=== PATIENT | male | born 1955 | race American Indian/Alaskan Native ===

== ENCOUNTER 2017-06-09 16:54 | Inpatient (IN) | payer MEDICARE ==
[2017-06-09 17:35] LABS: BASO % 0.4 % (0.0-2.0); EOS # 0.3 K/uL (0.0-0.7); EOS % 2.9 % (0.0-4.0); LYMPH # 2.5 K/uL (1.0-4.3); LYMPH % 22.1 % (20.0-40.0); MEAN CELL VOLUME 80.6 fL (80.0-94.0); MEAN CORPUSCULAR HEMOGLOBIN 28.4 pg (27.0-31.0); MEAN CORPUSCULAR HGB CONC 35.2 g/dL (33.0-37.0); MEAN PLATELET VOLUME 8.2 fL (7.2-11.7); MONO # 0.8 K/uL (0.0-0.8); MONO % 6.9 % (0.0-10.0); NRBC % 0.1 % (0.0-2.0); RED CELL DISTRIBUTION WIDTH 14.8 % (11.5-14.5); WHITE BLOOD COUNT 11.5 K/uL (4.8-10.8)
[2017-06-09 17:54] LABS: ALCOHOL SERUM 10 mg/dl (0-10); ALKALINE PHOSPHATASE 59 U/L (38-126); ALT/SGPT 44 U/L (21-72); AST/SGOT 35 U/L (17-59); BILIRUBIN,TOTAL 0.6 mg/dL (0.2-1.3); BLOOD UREA NITROGEN 23 mg/dL (9-20); CALCIUM 8.7 mg/dl (8.6-10.4); CARBON DIOXIDE 32 mmol/L (22-30); CHLORIDE 99 mmol/L (98-107); GFR AFRICAN-AMERICAN > 60; GLUCOSE,RANDOM 87 mg/dL (75-110); POTASSIUM 4.4 mmol/L (3.6-5.2); SODIUM 136 mmol/L (132-148); TOTAL PROTEIN 9.2 g/dL (6.3-8.3)
[2017-06-09 18:01] LABS: ALB/GLOB RATIO 0.9 (1.0-2.1)
[2017-06-09 18:03] LABS: RBC URINE 1 /hpf (0-3); URINE BILIRUBIN NEGATIVE (NEGATIVE); URINE BLOOD NEGATIVE (NEGATIVE); URINE COLOR Yellow (YELLOW); URINE GLUCOSE (UA) NORMAL (Normal); URINE KETONE NEGATIVE (NEGATIVE); URINE LEUKOCYTE ESTERASE TRACE Leu/uL (Negative); URINE PROTEIN NEGATIVE (NEGATIVE); URINE UROBILINOGEN NORMAL mg/dL (0.2-1.0); WBC URINE 4 /hpf (0-5)
--- NOTE | 2017-06-09 18:31 | C.PDOC ---
History Of Present Illness <CookAysha Go - Last Filed: 06/09/17 19:11> <Leatha Herculesmonica - Last Filed: 06/09/17 19:25> Rj Mario is a 61 year old male presents to the emergency department requesting detox from heroin, last time used was today. He uses intranasally for several years. Patient denies other drug use. He denies any fever, chills, suicidal or homicidal ideation. No further medical complaints. PMd: Dr. Malik in [facility] (Aysha Cook) History Per: Patient History/Exam Limitations: no limitations Onset/Duration Of Symptoms: Days (x1) Suicide/Self Injury Attempted (Context): None Severity: None Pain Scale Rating Of: 0 Associated Symptoms: denies: Suicidal Thoughts, Suicidal Plan <CookAysha Go - Last Filed: 06/09/17 19:11> <JenniferzaidaLeathamonica - Last Filed: 06/09/17 19:25> Time Seen by Provider: 06/09/17 17:19 Chief Complaint (Nursing): Substance Abuse Past Medical History Reviewed: Historical Data, Nursing Documentation, Vital Signs - Medical History PMH: Arthritis, HTN, Hypercholesterolemia Surgical History: Hernia Repair (ventral) Other Surgeries: bilateral foot surgery Family History: States: Unknown Family Hx - Social History Hx Tobacco Use: Yes (Light smoker <10 cigarettes daily) Hx Alcohol Use: Yes Hx Substance Use: Yes (Heroin use) - Immunization History Hx Tetanus Toxoid Vaccination: No Hx Influenza Vaccination: Yes Hx Pneumococcal Vaccination: No <JoeyAysha Go - Last Filed: 06/09/17 19:11> Vital Signs: Last Vital Signs Temp 98.2 F 06/09/17 17:09 Pulse 63 06/09/17 17:09 Resp 18 06/09/17 17:09 BP 148/71 06/09/17 17:09 Pulse Ox 99 06/09/17 19:11 Review Of Systems Except As Marked, All Systems Reviewed And Found Negative. Constitutional: Negative for: Fever, Chills Psych: Negative for: Suicidal ideation (or homicidal ) <CookAysha Go - Last Filed: 06/09/17 19:11> Physical Exam - Physical Exam Appears: No Acute Distress Skin: Normal Color, Warm, Dry Head: Atraumatic, Normacephalic Eye(s): bilateral: Normal Inspection, PERRL, EOMI Neck: Normal, Normal ROM Cardiovascular: Rhythm Regular, No Murmur Respiratory: Normal Breath Sounds, No Accessory Muscle Use Gastrointestinal/Abdominal: Normal Exam, Bowel Sounds, Soft, No Tenderness, No Guarding, No Rebound Back: Normal Inspection, No CVA Tenderness Extremity: Normal ROM, No Deformity, No Swelling Neurological/Psych: Oriented x3, Normal Speech Gait: Steady <Aysha Cook - Last Filed: 06/09/17 19:11> ED Course And Treatment - Laboratory Results Result Diagrams: 06/09/17 17:32 12 17:32 O2 Sat by Pulse Oximetry: 99 (RA) Pulse Ox Interpretation: Normal <Aysha Cook - Last Filed: 06/09/17 19:11> - Laboratory Results Result Diagrams: 06/09/17 17:32 12 17:32 <Ismael Hercules - Last Filed: 06/09/17 19:25> Medical Decision Making <Aysha Cook - Last Filed: 06/09/17 19:11> <Ismael Hercules - Last Filed: 06/09/17 19:25> Medical Decision Making: Initial Impression: substance abuse Initial Plan: --Alcohol serum --Comp Metabolic Panel --Drug screen, Urine --CBC w/ differential --Urinalysis --AES crisis evaluation Labs ordered and reviewed. In my clinical judgment patient is medically cleared and stable for detox admission. 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 [address] Beard Case signed out to Dr Hercules and pending dispo (Aysha Cook) Disposition - Disposition Disposition Time: 19:06 - POA Present On Arrival: None <Aysha Cook - Last Filed: 06/09/17 19:11> Discussed With : Diego Beard Comment: accepted the pt on his service and took over the care at 7:25 PM Doctor Will See Patient In The: Hospital Counseled Patient/Family Regarding: Studies Performed, Diagnosis - POA Present On Arrival: None <Ismael Hercules - Last Filed: 06/09/17 19:25> - Disposition Disposition: HOSPITALIZED Condition: FAIR - Clinical Impression Clinical Impression: Opiate dependence - PA / ANNUAL GIVING OFFICER / Resident Statement MD/DO has reviewed & agrees with the documentation as recorded. - Scribe Statement The provider has reviewed the documentation as recorded by the Scribe <Aysha Cook - Last Filed: 06/09/17 19:11> <Ismael Hercules - Last Filed: 06/09/17 19:25> - Scribe Statement Documented by Agustin Lang acting as a scribe for AARON Eckert All medical record entries made by the Scribe were at my direction and personally dictated by me. I have reviewed the chart and agree that the record accurately reflects my personal performance of the history, physical exam, medical decision making, and the department course for this patient. I have also personally directed, reviewed, and agree with the discharge instructions and disposition. (Aysha Cook) Decision To Admit <Aysha Cook - Last Filed: 06/09/17 19:11> - Pt Status Changed To: Hospital Disposition Of: Inpatient - Admit Certification Admit to Inpatient:: After my assessment, the patient will require hospitalization for at least two midnights. This is because of the severity of symptoms shown, intensity of services needed, and/or the medical risk in this patient being treated as an outpatient. - InPatient: Physician Admission Certification: I certify that this patient requires 2 or more midnights of care for the following reason:: After my assessment, the patient will require hospitalization for at least two midnights. This is because of the severity of symptoms shown, intensity of services needed, and/or the medical risk in this patient being treated as an outpatient. - . Bed Request Type: Detox Admitting Physician: Diego Beard <Ismael Hercules - Last Filed: 06/09/17 19:25> - . Patient Diagnosis: Opiate dependence
--- NOTE | 2017-06-09 19:35 | PCM.BM ---
<Lauren Corrales - Last Filed: 06/09/17 19:34> Treatment Plan Problems - Problems identified on initial assessmt potiential for opiate withdrawal Date Initiated: 06/09/17 Time Initiated: 19:35 Assessment reference: NA Status: Active Treatment assets and liabiliti Patient Assests: cooperative, motivated, ADL independent, good support system Patient Liabilities: substance abuse, medical problems - Milieu Protocol Maintain good personal hygiene: daily Encourage regular showers, daily Remind patient to perform daily oral care, daily Assist patient to perform ADL's Maintain personal safety: every shift Educate patient to report safety concerns to staff, every shift Monitor environment for contraband/sharps Medication safety: Monitor for expected outcome, potential side effects: every shift, Assess barriers to learning: every shift, Assess readiness for medication education: every shift <Jamie Schwartz - Last Filed: 06/10/17 21:36> - Diagnosis (1) Opioid use disorder, severe, dependence Status: Acute Interventions: 06/10/17 21:35 Assess 7x/week regarding severity of withdrawal Educate regarding risks, benefits, side effects and alternatives of medications Use Motivational Interviewing for abstinence Use CBT for relapse prevention Medication management for withdrawal symptoms Encourage medication assisted treatment
[2017-06-09] MEDS: LUMIGAN 0.01% OU SCH (22:12)
[2017-06-10] MEDS ORDERED: Aluminum Hydroxide/Magnesium Hydroxide Susp (30 mL) PO PRN (00:22)
[2017-06-10] MEDS ORDERED: Home Med 1 UNIT (Meloxicam [Mobic] 15 MG) PO SCH (10:00)
[2017-06-10] MEDS ORDERED: Magnesium Hydroxide Susp 30 ml UD PO PRN (16:28)
--- NOTE | 2017-06-10 21:41 | PCM.PSYCH ---
Initial Psychiatric Evaluation - Initial Psychiatric Evaluation Type of Admission: Voluntary Legal Status: Capacity Chief Complaint (in patient's own words): I want to stop using heroin. History of Present Illness and Precipitating Events: Patient is a 61 years old, , retired, -[place] male with history of opioid use was admitted for the treatment of withdrawing from heroine. Patient started using heroin at the age of 12 years, increase gradually up to 6- 8 bags daily, snorting. Last used yesterday. Longest period of abstinence 3 years from [id number]. History of one detox and one rehab in the past. Patient also has history of cannabis and cocaine use in the past. Last use of cannabis about 30 years ago and cocaine in 1999. Also smokes cigarettes half pack daily and is requesting for nicotine patch. Patient has history of incarceration due to substance delivery. He was arrested 5 times and he was incarcerated for total of 12 years. Patient was born in [place], has GED, retired from [employer]. He is and has 4 grownup children. Lives with and 3 children. His height is 6 feet 1 inch and weight is 210 pounds. Current Medications: Active Medications Generic Name Dose Route Start Last Admin Trade Name Freq PRN Reason Stop Dose Admin Al Hydrox/Mg Hydrox/Simethicone 30 ml 06/10/17 00:22 Maalox 30 Ml PO TID PRN Indigestion / Heartburn Aspirin 81 mg 06/10/17 10:00 06/10/17 09:47 Aspirin Chewable PO 81 mg DAILY TURNER Administration Carvedilol 12.5 mg 06/09/17 21:45 06/10/17 18:04 Coreg PO 12.5 mg BID TURNER Administration Clonidine HCl 0.1 mg 06/10/17 00:22 Catapres PO Q8 PRN COWS Score More or Equal to 5 Gabapentin 100 mg 06/10/17 10:00 06/10/17 18:13 Neurontin PO Not Given TID TURNER Home Med 1 drop 06/09/17 22:00 06/09/17 22:12 Patient's Own Drops OU 1 drop HS TURNER Administration Hydroxyzine HCl 25 mg 06/10/17 00:24 Atarax PO Q6 PRN Agitation Loperamide HCl 2 mg 06/10/17 00:22 Imodium PO Q8 PRN Diarrhea Losartan Potassium 100 mg 06/10/17 10:00 06/10/17 09:47 Cozaar PO 100 mg DAILY TURNER Administration Magnesium Hydroxide 30 ml 06/10/17 16:28 06/10/17 18:05 Milk Of Magnesia PO 30 ml BID PRN Administration Nasal congestion Methadone HCl 20 mg 06/10/17 10:00 06/10/17 09:48 Methadone PO 06/14/17 09:59 20 mg DAILY TURNER Administration Taper Nicotine 1 patch 06/10/17 11:15 06/10/17 11:32 Nicoderm Cq TD 1 patch DAILY TURNER Administration Ondansetron HCl 4 mg 06/10/17 00:22 Zofran Tab PO Q8 PRN Nausea/Vomiting Rosuvastatin Calcium 2.5 mg 06/10/17 22:00 Crestor PO HS TURNER Trazodone HCl 50 mg 06/09/17 21:19 Desyrel PO HS PRN insomnia Past Psychiatric History - Past Psychiatric History Previous Treatment History: Inpatient Prior Professional Help: 1 previous detox in one rehab History of Abuse: None report History of ETOH/Drug Use: See HPI History of Family Illness: None reported Pertinent Medical Hx (Current Medical&Sleep Prob, Allergies): Allergies Allergy/AdvReac Type Severity Reaction Status Date / Time No Known Allergies Allergy Verified 06/09/17 17:15 Aspirin 81 mg PO DAILY 06/09/17 Carvedilol [Coreg] 12.5 mg PO BID 06/09/17 Meloxicam [Mobic] 15 mg PO DAILY 06/09/17 Pravastatin Sodium [Pravachol] 10 mg PO DAILY 06/09/17 Valsartan [Diovan] 160 mg PO DAILY 06/09/17 Hypertension Hypercholesterolemia Arthritis Bilateral eye glaucoma Review of Systems - Psychiatric Psychiatric: Other Mental Status Examination - Personal Presentation Personal Presentation: Looks stated age - Affect Affect: Other (Appropriate) - Motor Activity Motor Activity: Calm - Reliability in Providing Information Reliability in Providing Information: Fair - Speech Speech: Organized - Mood Mood: Anxious - Formal Thought Process Formal Thought Process: No Impairment - Hallucinations/Delusions Hallucinations: Other (None report) Delusions: Other - Obsessions/Compulsions Obsessions: None Compulsions: None - Cognitive Functions Orientation: Person, Place, Situation, Time Sensorium: Alert Attention/Concentration: Attentive Abstract Thinking: [place] Estimate of Intelligence: Average Judgement: Intact, as evidence by: Insight regarding need for hospitalization Memory: Recent intact, as evidence by: 3/3 object recall, Remote intact, as evidenced by: Ability to recall historical events - Risk Risk: Diminished functioning - Strength & Assets Inventory Strength & Assets Inventory: Family support, Cooperative - Limitations Limitations: Other DSM 5 DX - DSM 5 DSM 5 Diagnosis: Opioid use disorder severe - Recommended/Plan of Treatment Treatment Recommendations and Plan of Treatment: Patient education Supportive therapy Methadone taper for opioid withdrawal symptoms Other as needed medications Projected ELOS: 4-5 day Discharge Plan and Discharge Criteria: Patient wants to go to [facility] in [place], [place]. - Smoking Cessation Smoking Cessation Initiated: Yes
[2017-06-10] MEDS: Rosuvastatin Calcium 2.5 mg Tab PO SCH (21:42)
[2017-06-10] MEDS: LUMIGAN 0.01% OU SCH (21:43)
--- NOTE | 2017-06-11 12:26 | PCM.PYCHPN ---
Psychiatric Progress Note - Psychiatric Progress Note Patient seen today, length of contact: 16 min Patient Chief Complaint: "I feel better now" Problems Identified/Issues Discussed: The pt is seen, chart reviewed, case discussed with staff. The pt is compliant with medications and reports no side-effects. Symptoms are improving but needs more time to stabilize. After care discussed, support and psychoeducation given. Medication Change: Yes (detox changes daily) Medical Record Reviewed: Yes Mental Status Examination - Cognitive Function Orientation: Person, Place, Situation, Time Memory: Intact Attention: WNL Concentration: Poor Association: WNL Fund of Knowledge: WNL - Mood Mood: Anxious - Affect Affect: Broad - Speech Speech: Appropriate - Formal Thought Process Formal Thought Process: No Impairment - Suicidal Ideation Suicidal Ideation: No - Homicidal Ideation Homicidal Ideation: No Goal/Treatment Plan - Goal/Treatment Plan Need for Continued Stay: Discharge may exacerbated symptoms, Severe functional impairment Progress Toward Problem(s) and Goals/Treatment Plan: .. detox Gabapentin for augmentation As needed medications Attend groups and activities Supportive therapy and psychoeducation ID for abstinence CBT for relapse prevention Encourage MAT Refer to rehab or IOP, and self-help groups Smoking cessation with ID Nicotine patch 34 min Estimated Date of D/C: 06/14/17
[2017-06-11] MEDS: Rosuvastatin Calcium 2.5 mg Tab PO SCH (21:38)
[2017-06-11] MEDS: LUMIGAN 0.01% OU SCH (22:03)
--- NOTE | 2017-06-12 14:16 | PCM.PYCHPN ---
Psychiatric Progress Note - Psychiatric Progress Note Patient seen today, length of contact: 17 min Patient Chief Complaint: "I have a lump" Problems Identified/Issues Discussed: The pt is seen, chart reviewed, case discussed with staff. Support given, CBT and OR used briefly No new symptoms reported, improving slowly and needs more time No SEs from medications, risks discussed. After care discussed A small lump in his R breast evaluated. It is slightly painful, not red, not hard. He will follow up with his PCP as soon as he leaves. Medication Change: Yes (detox changes daily) Medical Record Reviewed: Yes Mental Status Examination - Cognitive Function Orientation: Person, Place, Situation, Time Memory: Intact Attention: WNL Concentration: Poor Association: WNL Fund of Knowledge: WNL - Mood Mood: Anxious - Affect Affect: Broad - Speech Speech: Appropriate - Formal Thought Process Formal Thought Process: No Impairment - Suicidal Ideation Suicidal Ideation: No - Homicidal Ideation Homicidal Ideation: No Goal/Treatment Plan - Goal/Treatment Plan Need for Continued Stay: Discharge may exacerbated symptoms, Severe functional impairment Progress Toward Problem(s) and Goals/Treatment Plan: Detox continues Gabapentin for augmentation As needed medications Attend groups and activities Supportive therapy and psychoeducation OR for abstinence CBT for relapse prevention Encourage MAT Refer to rehab or IOP, and self-help groups Smoking cessation with OR Nicotine patch Estimated Date of D/C: 06/14/17
[2017-06-12] MEDS ORDERED: Magnesium Citrate Oral SOL (300 ml) PO ONE (17:02)
[2017-06-12] MEDS: LUMIGAN 0.01% OU SCH (21:33)
[2017-06-12] MEDS: Rosuvastatin Calcium 2.5 mg Tab PO SCH (21:34)
--- NOTE | 2017-06-13 10:19 | PCM.PYCHPN ---
Psychiatric Progress Note - Psychiatric Progress Note Patient seen today, length of contact: 17 min Patient Chief Complaint: "I'm pretty good" Problems Identified/Issues Discussed: This patient was seen, chart reviewed, and case discussed with staff. Patient reports interrupted sleep due to frequency of urination. He denies any fevers, chills, dysuria, suprapubic pain, back/flank pain. He otherwise believes he is improving. He reports good mood and is excited to be discharged. He denies any feelings of depression or anxiety. He denies any auditory or visual hallucinations or any feelings of paranoia. He denies any suicidal or homicidal ideations. He continues to be social and freely leaves his room. Patient is compliant with medications and denies any side effects. Symptoms are improving but need more time to stabilize. After care discussed, support and psychoeducation given. Medication Change: Yes (Methadone taper) Medical Record Reviewed: Yes Mental Status Examination - Cognitive Function Orientation: Person, Place, Situation, Time Memory: Intact Attention: WNL Concentration: WNL Association: WNL Fund of Knowledge: WNL - Mood Mood: Anxious - Affect Affect: Broad - Speech Speech: Appropriate - Formal Thought Process Formal Thought Process: No Impairment - Suicidal Ideation Suicidal Ideation: No - Homicidal Ideation Homicidal Ideation: No Goal/Treatment Plan - Goal/Treatment Plan Need for Continued Stay: Discharge may exacerbated symptoms, Severe functional impairment Progress Toward Problem(s) and Goals/Treatment Plan: Detox continues Gabapentin for augmentation As needed medications Attend groups and activities Supportive therapy and psychoeducation PA for abstinence CBT for relapse prevention Encourage MAT Refer to rehab or IOP, and self-help groups Smoking cessation with PA Nicotine patch Estimated Date of D/C: 06/14/17
[2017-06-13] MEDS: Rosuvastatin Calcium 2.5 mg Tab PO SCH (21:51)
[2017-06-13] MEDS: LUMIGAN 0.01% OU SCH (21:52)
[2017-06-14 06:28] VITALS: O2SAT 97
[2017-06-14 09:15] VITALS: BP 108/70
[2017-06-14 10:10] VITALS: PULSE 67; RESP 19; TEMP 97.8
--- NOTE | 2017-06-14 10:13 | PCM.PYCHDC ---
Mental Status Examination - Mental Status Examination Orientation: Person Discharge Summary - Discharge Note Consultations:: List each consultation separately and include: 1. Reason for request. 2. Findings. 3. Follow-up Summary of Hospital Course include:: 1. Description of specific treatment plan utilized for patients during their course of treatmen. 2. Summarize the time- course for resolution of acute symptoms and/or regressed behaviors. 3. Describe issues identified and worked on during hospitalization. 4. Describe medication utilized. 5. Describe medical problems identified and treated. 6. Reassessment of suicide risk - Final Diagnosis (DSM 5) Condition upon Discharge: FAIR Disposition: HOME/ ROUTINE Follow-up Treatment Plan: Detox continues Gabapentin for augmentation As needed medications Attend groups and activities Supportive therapy and psychoeducation GA for abstinence CBT for relapse prevention Encourage MAT Refer to rehab or IOP, and self-help groups Smoking cessation with GA Nicotine patch Prescriptions/Medication Reconciliation: Gabapentin [Neurontin] 300 mg PO TID #90 cap traZODone [Desyrel] 100 mg PO HS PRN #30 tab PRN Reason: insomnia
== END 2017-06-14 11:15 | disposition home or self-care (01) | DRG 895 ==
LOC: C.ER 16:54 → C.7D 19:23
PROVIDERS: ADMIT Psychiatry & Neurology Psychiatry; ATTEND Psychiatry & Neurology Psychiatry
PROC: HZ2ZZZZ Detoxification Services for Substance Abuse Treatment (ICD-10-PCS; principal; 2017-06-09)
PROC: HZ59ZZZ Individual Psychotherapy for Substance Abuse Treatment, Supportive (ICD-10-PCS; 2017-06-09)
PROC: HZ90ZZZ Pharmacotherapy for Substance Abuse Treatment, Nicotine Replacement (ICD-10-PCS; 2017-06-09)
DX: F11.23 Opioid dependence with withdrawal (principal); F17.210 Nicotine dependence, cigarettes, uncomplicated; I10 Essential (primary) hypertension; M19.90 Unspecified osteoarthritis, unspecified site; E78.00 Pure hypercholesterolemia, unspecified; H40.9 Unspecified glaucoma